=== PATIENT | female | born 2000 | race Caucasian/White ===

== ENCOUNTER 2020-09-23 21:19 | Emergency (ER) | payer OTHER ==
[~2020-09-23] VITALS: Ht 165 cm; Wt 63.5 kg
--- NOTE | 2020-09-23 21:33 | ED General ---
General Stated Complaint: COVID 19 Source of Information: Patient Exam Limitations: No Limitations History of Present Illness Date Seen by Provider: Sep 23, 2020 Time Seen by Provider: 21:31 Initial Comments To ER by EMS at the request of her mother who is a nurse in [facility] with reports of feeling worse today and being positive for coronavirus. Was symptomatic with nasal congestion and coryza symptoms 7 days ago. Tested +2 days ago. History of asthma. Does use a Joule to date. Father is admitted to the hospital in [place] with hypoxia. Her main complaint today is of malaise. Timing/Duration: 1-2 Days Severity: Moderate Associated Systoms: Cough, Malaise Allergies and Home Medications Patient Home Medication List Home Medication List Reviewed: Yes Review of Systems Review of Systems Constitutional: see HPI, malaise, weakness EENTM: see HPI Respiratory: no symptoms reported Cardiovascular: no symptoms reported Genitourinary: no symptoms reported Musculoskeletal: no symptoms reported Skin: no symptoms reported Psychiatric/Neurological: No Symptoms Reported Hematologic/Lymphatic: No Symptoms Reported Physical Exam Vital Signs Capillary Refill : Height, Weight, BMI Height: '" Weight: lbs. oz. kg; BMI Method: General Appearance: No Apparent Distress, WD/WN, Other (alert and oriented no distress vitals are completely stable with oxygen saturation of 100% room air no accessory muscle use lungs are clear heart rate is in the 70s blood pressure 130s systolic.) Eyes: Bilateral Eye Normal Inspection, Bilateral Eye PERRL, Bilateral Eye EOMI Neck: Full Range of Motion, Normal Inspection Respiratory: Normal Breath Sounds, No Accessory Muscle Use, No Respiratory Distress Gastrointestinal: Normal Bowel Sounds, Non Tender, Soft Extremity: Normal Capillary Refill, Normal Inspection Neurologic/Psychiatric: Alert, Oriented x3 Skin: Normal Color, Warm/Dry Progress/Results/Core Measures Suspected Sepsis SIRS Temperature: Pulse: Respiratory Rate: Laboratory Tests 09/23/20 21:25: White Blood Count 5.5 Blood Pressure / Mean: Laboratory Tests 09/23/20 21:25: Platelet Count 188, Total Bilirubin 0.3 Results/Orders Lab Results Laboratory Tests Test 09/23/20 21:25 Range/Units White Blood Count 5.5 4.3-11.0 10^3/uL Red Blood Count 4.27 3.80-5.11 10^6/uL Hemoglobin 12.4 11.5-16.0 g/dL Hematocrit 37 35-52 % Mean Corpuscular Volume 87 80-99 fL Mean Corpuscular Hemoglobin 29 25-34 pg Mean Corpuscular Hemoglobin Concent 34 32-36 g/dL Red Cell Distribution Width 13.2 10.0-14.5 % Platelet Count 188 130-400 10^3/uL Mean Platelet Volume 10.8 9.0-12.2 fL Immature Granulocyte % (Auto) 0 % Neutrophils (%) (Auto) 68 42-75 % Lymphocytes (%) (Auto) 22 12-44 % Monocytes (%) (Auto) 8 0-12 % Eosinophils (%) (Auto) 1 0-10 % Basophils (%) (Auto) 0 0-10 % Neutrophils # (Auto) 3.8 1.8-7.8 10^3/uL Lymphocytes # (Auto) 1.2 1.0-4.0 10^3/uL Monocytes # (Auto) 0.5 0.0-1.0 10^3/uL Eosinophils # (Auto) 0.1 0.0-0.3 10^3/uL Basophils # (Auto) 0.0 0.0-0.1 10^3/uL Immature Granulocyte # (Auto) 0.0 0.0-0.1 10^3/uL Sodium Level 138 135-145 MMOL/L Potassium Level 3.6 3.6-5.0 MMOL/L Chloride Level 103 98-107 MMOL/L Carbon Dioxide Level 23 21-32 MMOL/L Anion Gap 12 5-14 MMOL/L Glucose Level 85 70-105 MG/DL Calcium Level 8.6 8.5-10.1 MG/DL Corrected Calcium 8.5 8.5-10.1 MG/DL Total Bilirubin 0.3 0.1-1.0 MG/DL Total Protein 6.9 6.4-8.2 GM/DL Albumin 4.1 3.2-4.5 GM/DL My Orders Orders - TELLY LOPES APRN Chest 1 View, Ap/Pa Only (09/23/20 21:30) Vital Signs/I&O Capillary Refill : Departure Impression Primary Impression: COVID-19 Disposition: 01 HOME, SELF-CARE Condition: Stable Departure-Patient Inst. Decision time for Depature: 21:53 Patient Instructions: Coronavirus Disease 2019 (COVID-19) Overview Add. Discharge Instructions: 1. Tylenol and Motrin for body aches fever 2. Return to ER for any concerns 3. Follow-up with your doctor next week. TELLY LOPES APRN Sep 23, 2020 21:33
[2020-09-23 21:36] LABS: BASOPHILS % (AUTO) 0 % (0-10); EOSINOPHILS # (AUTO) 0.1 10^3/uL (0.0-0.3); EOSINOPHILS % (AUTO) 1 % (0-10); HEMATOCRIT 37 % (35-52); HEMOGLOBIN 12.4 g/dL (11.5-16.0); LYMPHOCYTES # (AUTO) 1.2 10^3/uL (1.0-4.0); LYMPHOCYTES % (AUTO) 22 % (12-44); MEAN CORPUSCULAR HEMOGLOBIN 29 pg (25-34); MEAN CORPUSCULAR HGB CONC 34 g/dL (32-36); MEAN CORPUSCULAR VOLUME 87 fL (80-99); MEAN PLATELET VOLUME 10.8 fL (9.0-12.2); MONOCYTES # (AUTO) 0.5 10^3/uL (0.0-1.0); MONOCYTES % (AUTO) 8 % (0-12); NEUTROPHILS # (AUTO) 3.8 10^3/uL (1.8-7.8); NEUTROPHILS % (AUTO) 68 % (42-75); PLATELET COUNT 188 10^3/uL (130-400); WHITE BLOOD COUNT 5.5 10^3/uL (4.3-11.0)
[2020-09-23 21:47] LABS: ALBUMIN 4.1 GM/DL (3.2-4.5); CHLORIDE 103 MMOL/L (98-107); POTASSIUM 3.6 MMOL/L (3.6-5.0); SODIUM 138 MMOL/L (135-145)
[2020-09-23 21:48] LABS: CALCIUM 8.6 MG/DL (8.5-10.1)
[2020-09-23 21:49] LABS: GLUCOSE 85 MG/DL (70-105); TOTAL PROTEIN 6.9 GM/DL (6.4-8.2)
[2020-09-23 21:50] LABS: CARBON DIOXIDE 23 MMOL/L (21-32)
[2020-09-23 21:51] LABS: BILIRUBIN,TOTAL 0.3 MG/DL (0.1-1.0)
[2020-09-23 21:53] LABS: ALKALINE PHOSPHATASE 53 U/L (40-136); CREATININE SERUM 0.71 MG/DL (0.60-1.30); GFR ESTIMATED > 60
[2020-09-23 21:54] LABS: BUN/CREATININE RATIO 13
[2020-09-23 21:56] LABS: ALANINE AMINOTRANSFERASE 16 U/L (0-55)
--- NOTE | 2020-09-23 22:00 | NUR ---
Steven LOPES APRN UPDATED PT MOTHER AND PT WILL BE DC'D. MOTHER STATES SHE LIVES IN [place] AND WILL BE ON HER WAY TO PICK PT UP.
--- NOTE | 2020-09-23 23:35 | NUR ---
PT FOUND CRYING IN ROOM BECAUSE HER MOTHER HAS NOT LEFT [place] TO COME PICK HER UP YET. PT IS ESSENTIALLY DC'D FROM ER BUT MUST REMAIN IN ROOM SHE IS COVID 19 POSITIVE AND WE ARE UNABLE TO SEND HER HOME VIA [facility]AX[facility], ETC.
[2020-09-24 01:25] VITALS: BP 127/82
--- NOTE | 2020-09-24 07:36 | Diagnostic Imaging Report ---
Indication: Dyspnea and fever, COVID with pneumonia. Comparison: None. Discussion: Single portable upright view of the chest was obtained. Normal heart size. No consolidation, pleural fluid, or pneumothorax. No osseous abnormality. Impression: 1. Negative portable chest. Dictated by: Dictated on workstation # [id number]
== END 2020-09-24 01:25 | disposition home or self-care (01) ==
LOC: ER 21:21
DX: U07.1 COVID-19 (principal)
CPT/HCPCS: 36415; 71045; 80053; 84703; 85025; 85379; 86141; 93041